=== PATIENT | male | born 1950 | race Caucasian/White ===

== ENCOUNTER 2017-02-06 23:38 | Inpatient (IN) | payer MEDICARE, OTHER ==
[~2017-02-06] VITALS: Ht 182.9 cm; Wt 117.0 kg
[2017-02-07] MEDS ORDERED: MAGNESIUM HYDROXIDE 30 ML LIQUID UDC PO PRN (00:15)
[2017-02-07] MEDS ORDERED: MAG HYDROX/AL HYDROX/SIMETH 30 ML LIQUID UDC PO PRN (00:15)
[2017-02-07] MEDS ORDERED: TEMAZEPAM 7.5 MG CAPSULE PO PRN (00:15)
[2017-02-07] MEDS ORDERED: ACETAMINOPHEN 325 MG TABLET PO PRN (00:15)
[2017-02-07] MEDS ORDERED: CLONAZEPAM 0.5 MG TABLET PO PRN (00:30)
[2017-02-07] MEDS ORDERED: ATEN25TA PO (00:34)
[2017-02-07] MEDS ORDERED: OMEG500C PO (00:34)
[2017-02-07] MEDS ORDERED: AMLO10TA4 PO (00:34)
[2017-02-07 00:40] VITALS: BP 160/87
--- NOTE | 2017-02-07 01:32 | NUR ---
GPS: Admitted to unit earlier a 66 yr.old male from [facility] under the care of in stable condition. Pt.is on a 72 hour hold for DTS. Pt. made comments to ID social work therapist that he wanted to shoot himself in the head with a gun after his cat ,per his hold. Pt. stated his remarks were just misunderstood that's why he's here. Pt.denies wanting to hurt self. No S.I. Contracts for his safety while in the hosp. Body assessment done.Personal belongings completed. Safe environment provided. Will continue to monitor.
[2017-02-07 07:30] VITALS: BP 162/83
[2017-02-07 07:53] LABS: BASOPHILS # (AUTO) 0.1 K/uL (0.0-0.2); BASOPHILS % (AUTO) 0.6 % (0.0-2.0); EOSINOPHILS # (AUTO) 0.2 K/uL (0.0-0.7); HEMATOCRIT 45.3 % (40.0-50.0); HEMOGLOBIN 15.4 g/dL (14.0-18.0); LYMPHOCYTES % (AUTO) 24.2 % (20.5-51.5); MEAN CORPUSCULAR HEMOGLOBIN 30.1 uug (27.0-31.0); MEAN CORPUSCULAR HGB CONC 34 g/dL (32.0-37.0); MEAN CORPUSCULAR VOLUME 88.4 fL (82.0-92.0); MONOCYTES % (AUTO) 8.3 % (0.0-11.0); NEUTROPHILS # (AUTO) 7.9 K/uL (1.8-8.9); NEUTROPHILS % (AUTO) 64.9 % (38.5-71.5); PLATELET COUNT (AUTO) 166 K/uL (150-450); RED BLOOD CELL COUNT(AUTO) 5.12 MIL/uL (4.70-6.10); RED CELL DISTRIBUTION WIDTH 12.4 % (11.5-14.5); WHITE BLOOD COUNT (AUTO) 12.2 K/uL (4.0-11.2)
[2017-02-07 08:48] LABS: THYROID STIMULATING HORMONE 2.813 mIU/mL (0.358-3.740)
[2017-02-07] MEDS ORDERED: Medication Not On Formulary EA (Omega-3 Fatty Acids (Fish Oil) 500 MG) PO SCH (09:00)
[2017-02-07 09:01] LABS: CALCIUM 8.8 mg/dL (8.5-10.1); POTASSIUM 3.7 mmol/L (3.5-5.1)
[2017-02-07 09:06] LABS: BILIRUBIN,TOTAL 0.7 mg/dL (0.2-1.0)
[2017-02-07 09:09] LABS: CALCIUM 8.8 mg/dL (8.5-10.1); MAGNESIUM 2.1 mg/dL (1.8-2.4); PHOSPHOROUS 3.6 mg/dL (2.5-4.9); POTASSIUM 3.8 mmol/L (3.5-5.1)
[2017-02-07 09:12] LABS: CREATININE 1.5 mg/dL (0.6-1.3)
[2017-02-07] MEDS: DULOXETINE 30 MG CAPSULE.DR PO SCH (09:15)
[2017-02-07 09:19] LABS: CREATININE 1.4 mg/dL (0.6-1.3)
[2017-02-07] MEDS: OMEGA-3 FATTY ACIDS/FISH OIL CAPSULE PO SCH (09:57)
[2017-02-07] MEDS: AMLODIPINE 10 MG TABLET PO SCH (09:57)
[2017-02-07] MEDS: ATENOLOL 25 MG TABLET PO SCH (10:18)
--- NOTE | 2017-02-07 15:34 | NUR ---
Initial discharge instructions:Patient resides at home alone [[id number],[place],[id number];[phone]].Per pt,he wants to be discharged immediately.However,pt stated is unsure if he would like to go back or is open to SNF placement.Pt has no family/friend contact.SW will speak with patient and MD regarding appropriate discharge planning.SW will form a safe and proper discharge.
[2017-02-07 16:00] VITALS: BP 148/81
[2017-02-07 20:43] VITALS: BP 153/76
[2017-02-07 23:00] VITALS: BP 147/77
--- NOTE | 2017-02-08 06:47 | NUR ---
GPS: REMAIN CALM AND COOPERATIVE. NO BEHAVIOR PROBLEM NOTED. SLEPT 6 HRS THROUGH THE NIGHT. CONTINUE PLAN OF CARE.
[2017-02-08 08:00] VITALS: BP 166/89
[2017-02-08] MEDS: AMLODIPINE 10 MG TABLET PO SCH (08:19)
[2017-02-08] MEDS: OMEGA-3 FATTY ACIDS/FISH OIL CAPSULE PO SCH (08:19)
[2017-02-08] MEDS: ATENOLOL 25 MG TABLET PO SCH (08:20)
[2017-02-08] MEDS: NICOTINE 14 MG/24HR PATCH TD SCH (08:24)
[2017-02-08] MEDS: DULOXETINE 30 MG CAPSULE.DR PO SCH (08:25)
[2017-02-08 15:42] VITALS: BP 161/85
[2017-02-08 20:29] VITALS: BP 152/84
[2017-02-09 07:30] VITALS: BP 160/84
[2017-02-09] MEDS: DULOXETINE 30 MG CAPSULE.DR PO SCH (09:00)
[2017-02-09] MEDS: NICOTINE 14 MG/24HR PATCH TD SCH (09:00)
[2017-02-09] MEDS: OMEGA-3 FATTY ACIDS/FISH OIL CAPSULE PO SCH (09:13)
[2017-02-09 09:14] VITALS: BP 160/84
[2017-02-09] MEDS: ATENOLOL 25 MG TABLET PO SCH (09:14)
[2017-02-09] MEDS: AMLODIPINE 10 MG TABLET PO SCH (09:14)
--- NOTE | 2017-02-09 12:57 | NUR ---
Pt seen and evaluated by Dr. Estes, ip litigation paralegal for Dr. Lucas. Pt denies suicidal and homicidal ideations. States he is note depressed. Able to verbalize all needs. No aggressive or combative behavior. States he does not have access to guns at home because "the police took all the guns from the house." Refuses to stay on voluntary basis. Will sign out against medical advice.
[2017-02-09] MEDS ORDERED: hydrALAZINE HCL 25 MG TABLET PO PRN (13:30)
--- NOTE | 2017-02-09 14:30 | NUR ---
GPS: Nursing Notes: Discharge AMA: Patient demanded to leave the unit. denies any SI/HI, denies any AH/VH, denies any pain or discomfort, denies any SOB, per psychiatrist evaluation, patient did not meet criteria for involuntary hospitalization, informed psychiatrist that the police took all his guns from him and that it is safe to return home, patient advised that when he leaves he would assume full responsibility for himself and patient replied "That is okay with me.. I will see my own doctor..", "I want to go home now..", took all his belongings with him, AMA form completed and signed by patient. Treatment goals not met. Left by 14:30, stated, "I have my bus pass with me.. I am fine..."
== END 2017-02-09 14:30 | disposition left against medical advice (07) | DRG 881 ==
LOC: GPS 23:38
PROVIDERS: ADMIT Psychiatry & Neurology Psychiatry; ATTEND Internal Medicine
DX: F32.9 Major depressive disorder, single episode, unspecified (principal); N17.0 Acute kidney failure with tubular necrosis; R45.851 Suicidal ideations; Z73.6 Limitation of activities due to disability; E66.9 Obesity, unspecified; E88.09 Other disorders of plasma-protein metabolism, not elsewhere classified; F17.210 Nicotine dependence, cigarettes, uncomplicated; I10 Essential (primary) hypertension; Z68.35 Body mass index [BMI] 35.0-35.9, adult
CPT/HCPCS: 36415; 83735; 84100; 84443; 85025